=== PATIENT | male | born 1995 | race Caucasian/White ===

== ENCOUNTER 2017-11-22 14:28 | Inpatient (IN) | payer BC ==
[2017-11-22] MEDS ORDERED: ONDANSETRON 4 MG TAB PO (17:30)
[2017-11-22] MEDS ORDERED: NACL 0.9% 3 ML SYG IV (17:30)
[2017-11-22] MEDS: SOD CHLORIDE 0.9% 1,000 ML IV (17:55)
[2017-11-22] MEDS: HYDROCODONE/APAP (5/325) TAB PO (18:39)
[2017-11-22 20:23] LABS: FREE T4 (FREE THYROXINE) 1.22 ng/dl (0.79-2.35)
[2017-11-22] MEDS: CHLORDIAZEPOXIDE 25 MG CAP PO (20:48)
[2017-11-22] MEDS: LORAZEPAM 2 MG INJ IV (21:11)
[2017-11-23] MEDS: SOD CHLORIDE 0.9% 1,000 ML IV ×4 (02:21→17:19)
[2017-11-23] MEDS: HYDROCODONE/APAP (5/325) TAB PO ×3 (04:12→15:57)
[2017-11-23 05:30] LABS: HEMATOCRIT 27.6 % (42.0-52.0); HEMOGLOBIN 9.4 g/dl (14.0-18.0); MEAN CORPUSCULAR HEMOGLOBIN 28.7 pg (29.0-33.0); MEAN CORPUSCULAR HGB CONC 34.1 g/dl (32.0-37.0); MEAN CORPUSCULAR VOLUME 84.4 fl (82.0-101.0); MEAN PLATELET VOLUME 10.2 fl (7.4-10.4); PLATELET COUNT 142 10^3/UL (140-415); RED BLOOD COUNT 3.27 10^6/ul (4.70-6.10); RED CELL DISTRIBUTION WIDTH 14.2 % (11.5-14.5)
[2017-11-23 05:30] LABS: WHITE BLOOD COUNT 5.8 10^3/ul (4.8-10.8)
[2017-11-23 05:42] LABS: ADD MAN DIFF? YES
[2017-11-23 05:49] LABS: INR 1.07; PT RATIO 1.1
[2017-11-23 05:50] LABS: PARTIAL THROMBOPLASTIN TIME 33.2 Sec (25.0-35.0)
[2017-11-23 05:53] LABS: ALANINE AMINOTRANSFERASE 35 IU/L (13-69); ALBUMIN 3.3 g/dl (3.3-4.9); ALBUMIN/GLOBULIN RATIO 1.32; ALKALINE PHOSPHATASE 62 IU/L (42-121); ANION GAP 12 (8-16); ASPARTATE AMINO TRANSFERASE 75 IU/L (15-46); BILIRUBIN,INDIRECT 0.5 mg/dl (0-1.1); BILIRUBIN,TOTAL 0.5 mg/dl (0.2-1.3); BLOOD UREA NITROGEN 7 mg/dl (7-20); CALCIUM 8.4 mg/dl (8.4-10.2); CARBON DIOXIDE 27 mmol/L (21-31); CHLORIDE 107 mmol/L (97-110); CREATININE 0.71 mg/dl (0.61-1.24); GLUCOSE 79 mg/dl (70-220); POTASSIUM 3.8 mmol/L (3.5-5.1); SODIUM 142 mmol/L (135-144); TOTAL PROTEIN 5.8 g/dl (6.1-8.1)
[2017-11-23 06:43] LABS: CHOL/HDL RATIO 2.2 RATIO; CHOLESTEROL 96 mg/dl (100-200); CREATINE KINASE 1208 IU/L (23-200); HDL CHOLESTEROL 42 mg/dl (30-63); LDL CHOLESTEROL,CALCULATED 38 mg/dl; MAGNESIUM 1.9 mg/dl (1.7-2.5); TRIGLYCERIDES 82 mg/dl (0-149)
[2017-11-23 06:43] LABS: PHOSPHORUS 2.5 mg/dl (2.5-4.9)
[2017-11-23 09:19] LABS: ANISOCYTOSIS 2+ (0-0); BASOPHILS % (M) 1 % (0-2); EOSINOPHILS % (M) 2 % (0-7); GIANT THROMBO% (M) 2 % (0-0); LYMPHOCYTES #M 1.1 10^3/ul (0.8-2.9); LYMPHOCYTES % (M) 20 % (15-51); MICROCYTOSIS 2+ (0-0); MONOCYTE #M 0.5 10^3/ul (0.3-0.9); MONOCYTES % (M) 9 % (0-11); PLATELET ESTIMATE NORMAL; REACTIVE LYMPHOCYTES% (M) 1 % (0-0); SEGMENTED NEUTROPHILS (M) % 67 % (39-77); SMUDGE%M 4 % (0-0)
[2017-11-23] MEDS: MULTIVITAMINS THERAPEUTIC TAB PO (10:02)
[2017-11-23] MEDS: CHLORDIAZEPOXIDE 25 MG CAP PO ×3 (10:02→20:58)
[2017-11-23] MEDS: ENOXAPARIN 40 MG/0.4 ML SYG SC (10:04)
[2017-11-23 10:26] LABS: HEMOGLOBIN A1C 5.2 % (0-5.9)
[2017-11-23 10:29] LABS: BASOPHILS % 0.3 % (0.0-2.0); EOSINOPHILS # 0.1 10^3/ul (0.0-0.5); EOSINOPHILS % 1.8 % (0.0-7.0); LYMPHOCYTES # 1.3 10^3/ul (0.8-2.9); LYMPHOCYTES % 21.8 % (15.0-51.0); MONOCYTES % 16.6 % (0.0-11.0); NEUTROPHIL # 3.6 10^3/ul (1.6-7.5); NEUTROPHILS % 59.3 % (39.0-77.0)
[2017-11-23] MEDS ORDERED: BISACODYL (EC) 5 MG TAB PO (10:30)
[2017-11-23 11:24] LABS: IRON 25 ug/dl (35-150)
[2017-11-23 11:34] LABS: % IRON SATURATION 10 % SAT (22-52); TOTAL IRON BINDING CAPACITY 257 ug/dl (241-421)
[2017-11-23 12:01] LABS: FERRITIN 98.2 ng/ml (17.9-464.0)
[2017-11-23 12:32] LABS: FOLATE 13.6 ng/ml (2.8-20.0)
[2017-11-23] MEDS: morphine 2 MG INJ IV (17:20)
[2017-11-23] MEDS: INFLUENZA VIRUS VACCINE 0.5 ML SYG IM* (20:00)
[2017-11-23] MEDS: DOCUSATE SODIUM 100 MG CAP PO (20:58)
[2017-11-23] MEDS: FLUTICASONE 0.05% 16 GM NAS SPRAY NASAL (20:58)
[2017-11-24] MEDS: SOD CHLORIDE 0.9% 1,000 ML IV ×6 (00:58→18:00)
[2017-11-24 05:52] LABS: ADD MAN DIFF? NO
[2017-11-24 05:56] LABS: BASOPHILS % 0.9 % (0.0-2.0); EOSINOPHILS # 0.1 10^3/ul (0.0-0.5); EOSINOPHILS % 2.4 % (0.0-7.0); HEMATOCRIT 27.9 % (42.0-52.0); HEMOGLOBIN 9.5 g/dl (14.0-18.0); LYMPHOCYTES # 1.4 10^3/ul (0.8-2.9); LYMPHOCYTES % 29.6 % (15.0-51.0); MEAN CORPUSCULAR HEMOGLOBIN 28.6 pg (29.0-33.0); MEAN CORPUSCULAR HGB CONC 34.1 g/dl (32.0-37.0); MONOCYTE # 0.7 10^3/ul (0.3-0.9); MONOCYTES % 15.2 % (0.0-11.0); NEUTROPHIL # 2.4 10^3/ul (1.6-7.5); NEUTROPHILS % 51.7 % (39.0-77.0); PLATELET COUNT 154 10^3/UL (140-415); RED BLOOD COUNT 3.32 10^6/ul (4.70-6.10); RED CELL DISTRIBUTION WIDTH 13.9 % (11.5-14.5)
[2017-11-24 05:56] LABS: WHITE BLOOD COUNT 4.7 10^3/ul (4.8-10.8)
[2017-11-24 06:16] LABS: ANION GAP 12 (8-16); BLOOD UREA NITROGEN 4 mg/dl (7-20); CALCIUM 8.5 mg/dl (8.4-10.2); CARBON DIOXIDE 25 mmol/L (21-31); CHLORIDE 109 mmol/L (97-110); CREATININE 0.69 mg/dl (0.61-1.24); GLUCOSE 79 mg/dl (70-220); POTASSIUM 3.9 mmol/L (3.5-5.1); SODIUM 142 mmol/L (135-144)
[2017-11-24 06:20] LABS: CREATINE KINASE 851 IU/L (23-200); MAGNESIUM 1.8 mg/dl (1.7-2.5)
[2017-11-24 06:20] LABS: PHOSPHORUS 3.2 mg/dl (2.5-4.9)
[2017-11-24] MEDS: FLUTICASONE 0.05% 16 GM NAS SPRAY NASAL ×2 (08:19→20:31)
[2017-11-24] MEDS: CHLORDIAZEPOXIDE 25 MG CAP PO ×2 (08:20→13:00)
[2017-11-24] MEDS: HYDROCODONE/APAP (5/325) TAB PO ×2 (08:20→15:25)
[2017-11-24] MEDS: DOCUSATE SODIUM 100 MG CAP PO ×2 (08:53→20:30)
[2017-11-24] MEDS: MULTIVITAMINS THERAPEUTIC TAB PO (08:53)
[2017-11-24] MEDS: ENOXAPARIN 40 MG/0.4 ML SYG SC (08:58)
[2017-11-24] MEDS: CHLORDIAZEPOXIDE 5 MG CAP PO (20:31)
[2017-11-24] MEDS: LORAZEPAM 2 MG INJ IV (21:10)
[2017-11-25] MEDS: SOD CHLORIDE 0.9% 1,000 ML IV ×5 (01:01→17:36)
[2017-11-25 05:55] LABS: ADD MAN DIFF? NO
[2017-11-25 05:59] LABS: BASOPHIL # 0.1 10^3/ul (0.0-0.1); EOSINOPHILS # 0.2 10^3/ul (0.0-0.5); EOSINOPHILS % 3.1 % (0.0-7.0); HEMOGLOBIN 9.9 g/dl (14.0-18.0); LYMPHOCYTES # 1.2 10^3/ul (0.8-2.9); LYMPHOCYTES % 23.6 % (15.0-51.0); MEAN CORPUSCULAR HEMOGLOBIN 28.6 pg (29.0-33.0); MEAN CORPUSCULAR HGB CONC 34.1 g/dl (32.0-37.0); MEAN CORPUSCULAR VOLUME 83.8 fl (82.0-101.0); MEAN PLATELET VOLUME 9.7 fl (7.4-10.4); MONOCYTE # 0.7 10^3/ul (0.3-0.9); MONOCYTES % 14.1 % (0.0-11.0); PLATELET COUNT 155 10^3/UL (140-415); RED BLOOD COUNT 3.46 10^6/ul (4.70-6.10); RED CELL DISTRIBUTION WIDTH 13.8 % (11.5-14.5)
[2017-11-25 05:59] LABS: WHITE BLOOD COUNT 5.2 10^3/ul (4.8-10.8)
[2017-11-25 06:20] LABS: CREATINE KINASE 488 IU/L (23-200)
[2017-11-25 06:21] LABS: PHOSPHORUS 3.6 mg/dl (2.5-4.9)
[2017-11-25 06:21] LABS: ANION GAP 17 (8-16); BLOOD UREA NITROGEN 3 mg/dl (7-20); CARBON DIOXIDE 27 mmol/L (21-31); CHLORIDE 106 mmol/L (97-110); CREATININE 0.72 mg/dl (0.61-1.24); GLUCOSE 88 mg/dl (70-220); MAGNESIUM 1.8 mg/dl (1.7-2.5); SODIUM 146 mmol/L (135-144)
[2017-11-25] MEDS: MULTIVITAMINS THERAPEUTIC TAB PO (08:43)
[2017-11-25] MEDS: FLUTICASONE 0.05% 16 GM NAS SPRAY NASAL ×2 (08:43→20:21)
[2017-11-25] MEDS: DOCUSATE SODIUM 100 MG CAP PO ×2 (08:43→20:21)
[2017-11-25] MEDS: CHLORDIAZEPOXIDE 5 MG CAP PO ×3 (08:43→20:21)
[2017-11-25] MEDS: ENOXAPARIN 40 MG/0.4 ML SYG SC (08:47)
[2017-11-25] MEDS: HYDROCODONE/APAP (5/325) TAB PO ×2 (09:20→16:34)
[2017-11-25] MEDS: LORAZEPAM 2 MG INJ IV (20:25)
[2017-11-26] MEDS: SOD CHLORIDE 0.9% 1,000 ML IV ×4 (02:00→20:03)
[2017-11-26] MEDS: HYDROCODONE/APAP (5/325) TAB PO ×4 (02:24→20:01)
[2017-11-26] MEDS: LORAZEPAM 2 MG INJ IV ×2 (05:16→21:42)
[2017-11-26] MEDS: DOCUSATE SODIUM 100 MG CAP PO ×2 (09:00→20:00)
[2017-11-26] MEDS: FLUTICASONE 0.05% 16 GM NAS SPRAY NASAL ×2 (10:11→20:02)
[2017-11-26] MEDS: MULTIVITAMINS THERAPEUTIC TAB PO (10:12)
[2017-11-26] MEDS: CHLORDIAZEPOXIDE 5 MG CAP PO ×3 (10:12→20:05)
[2017-11-26] MEDS: ENOXAPARIN 40 MG/0.4 ML SYG SC (10:13)
[2017-11-27] MEDS: SOD CHLORIDE 0.9% 1,000 ML IV ×4 (02:00→18:14)
[2017-11-27] MEDS: HYDROCODONE/APAP (5/325) TAB PO ×3 (04:21→23:45)
[2017-11-27] MEDS: FLUTICASONE 0.05% 16 GM NAS SPRAY NASAL ×2 (10:55→20:24)
[2017-11-27] MEDS: DOCUSATE SODIUM 100 MG CAP PO ×2 (10:55→20:23)
[2017-11-27] MEDS: MULTIVITAMINS THERAPEUTIC TAB PO (10:56)
[2017-11-27] MEDS: CHLORDIAZEPOXIDE 5 MG CAP PO ×3 (10:56→20:23)
[2017-11-27] MEDS: ENOXAPARIN 40 MG/0.4 ML SYG SC (11:02)
[2017-11-27] MEDS: LORAZEPAM 2 MG INJ IV (18:19)
[2017-11-28] MEDS: SOD CHLORIDE 0.9% 1,000 ML IV ×4 (02:02→20:31)
[2017-11-28] MEDS: HYDROCODONE/APAP (5/325) TAB PO ×2 (06:03→11:50)
[2017-11-28] MEDS: DOCUSATE SODIUM 100 MG CAP PO ×2 (09:35→20:30)
[2017-11-28] MEDS: CHLORDIAZEPOXIDE 5 MG CAP PO ×3 (09:35→20:30)
[2017-11-28] MEDS: MULTIVITAMINS THERAPEUTIC TAB PO (09:35)
[2017-11-28] MEDS: FLUTICASONE 0.05% 16 GM NAS SPRAY NASAL ×2 (09:35→20:31)
[2017-11-28] MEDS: ENOXAPARIN 40 MG/0.4 ML SYG SC (09:37)
[2017-11-28] MEDS: LORAZEPAM 2 MG INJ IV (15:21)
[2017-11-28] MEDS: morphine 2 MG INJ IV (20:34)
[2017-11-29] MEDS: morphine 2 MG INJ IV ×2 (01:27→08:10)
[2017-11-29] MEDS: SOD CHLORIDE 0.9% 1,000 ML IV ×5 (02:00→23:09)
[2017-11-29] MEDS: CHLORDIAZEPOXIDE 5 MG CAP PO ×3 (08:07→20:18)
[2017-11-29] MEDS: ENOXAPARIN 40 MG/0.4 ML SYG SC (08:07)
[2017-11-29] MEDS: DOCUSATE SODIUM 100 MG CAP PO ×2 (08:08→20:18)
[2017-11-29] MEDS: MULTIVITAMINS THERAPEUTIC TAB PO (09:00)
[2017-11-29] MEDS: FLUTICASONE 0.05% 16 GM NAS SPRAY NASAL ×2 (10:19→20:18)
[2017-11-29] MEDS: HYDROCODONE/APAP (5/325) TAB PO ×2 (10:20→20:18)
[2017-11-29 14:53] LABS: ALANINE AMINOTRANSFERASE 29 IU/L (13-69); ALBUMIN 4.3 g/dl (3.3-4.9); ALKALINE PHOSPHATASE 62 IU/L (42-121); ANION GAP 15 (8-16); ASPARTATE AMINO TRANSFERASE 23 IU/L (15-46); BILIRUBIN,INDIRECT 0.4 mg/dl (0-1.1); BILIRUBIN,TOTAL 0.4 mg/dl (0.2-1.3); BLOOD UREA NITROGEN 9 mg/dl (7-20); CALCIUM 9.6 mg/dl (8.4-10.2); CARBON DIOXIDE 31 mmol/L (21-31); CHLORIDE 100 mmol/L (97-110); CREATININE 0.72 mg/dl (0.61-1.24); GLUCOSE 89 mg/dl (70-220); POTASSIUM 4.4 mmol/L (3.5-5.1); SODIUM 142 mmol/L (135-144); TOTAL PROTEIN 7.6 g/dl (6.1-8.1)
[2017-11-29] MEDS: morphine LIQ (10 MG/5 ML) CUP PO (18:08)
[2017-11-30] MEDS: SOD CHLORIDE 0.9% 1,000 ML IV ×2 (02:00→09:40)
[2017-11-30] MEDS: HYDROCODONE/APAP (5/325) TAB PO ×2 (04:19→13:49)
[2017-11-30] MEDS: FLUTICASONE 0.05% 16 GM NAS SPRAY NASAL (09:17)
[2017-11-30] MEDS: MULTIVITAMINS THERAPEUTIC TAB PO (09:18)
[2017-11-30] MEDS: DOCUSATE SODIUM 100 MG CAP PO (09:18)
[2017-11-30] MEDS: CHLORDIAZEPOXIDE 5 MG CAP PO ×2 (09:20→13:11)
[2017-11-30] MEDS: ENOXAPARIN 40 MG/0.4 ML SYG SC (09:22)
== END 2017-11-30 16:55 | disposition home or self-care (01) | DRG 563 ==
LOC: MS2 14:28
PROVIDERS: Family Medicine
DX: S92.001A Unspecified fracture of right calcaneus, initial encounter for closed fracture (principal); S62.39 Other fracture of other metacarpal bone; S82.62XA Displaced fracture of lateral malleolus of left fibula, initial encounter for closed fracture; T79.6XXA Traumatic ischemia of muscle, initial encounter; F41.9 Anxiety disorder, unspecified; Z59.0 Homelessness; F17.200 Nicotine dependence, unspecified, uncomplicated; F14.10 Cocaine abuse, uncomplicated; F15.10 Other stimulant abuse, uncomplicated; F12.10 Cannabis abuse, uncomplicated; D64.9 Anemia, unspecified; W17.89XA Other fall from one level to another, initial encounter; Y92.89 Other specified places as the place of occurrence of the external cause; X58.XXXD Exposure to other specified factors, subsequent encounter
CPT/HCPCS: 73200; 73610; 80048; 80053; 80061; 82550; 82607; 82728; 82746; 83036; 83540; 83735; 84100; 84439; 84443; 85025; 85610; 85730; 90686; 97116; 97161; 97530